=== PATIENT | male | born 1985 | race Caucasian/White ===

== ENCOUNTER 2016-07-29 05:34 | Day surgery (SDC) | payer OTHER ==
[~2016-07-29] VITALS: Ht 175.3 cm; Wt 103.9 kg
[~2016-07-29 05:34] MED LIST: LISINOPRIL
[2016-07-29] MEDS ORDERED: CARDIZEM CD 12120 MG PO (05:52)
[2016-07-29] MEDS ORDERED: BENICAR HCT 251 TAB PO (05:52)
[2016-07-29] MEDS ORDERED: PRIL40 PO (05:52)
[2016-07-29] MEDS ORDERED: CELEXA 20MG20 MG/TAB PO (05:53)
[2016-07-29] MEDS ORDERED: ZYRTEC 10MG10 MG PO (05:53)
[2016-07-29] MEDS ORDERED: STOOL SOFTENER100 M2 PO (05:54)
[2016-07-29 06:24] VITALS: BP 144/85; PULSE 75; TEMP 98.4
[2016-07-29 08:30] VITALS: BP 143/77; PULSE 74; TEMP 97.2
[2016-07-29 08:35] VITALS: TEMP 99
[2016-07-29 08:45] VITALS: BP 132/76; PULSE 67
== END 2016-07-29 09:15 | disposition home or self-care (01) ==
LOC: SDCO 05:34
DX: K60.3 Anal fistula (principal); K64.8 Other hemorrhoids; B00.9 Herpesviral infection, unspecified; I10 Essential (primary) hypertension; F41.9 Anxiety disorder, unspecified; K21.9 Gastro-esophageal reflux disease without esophagitis; F17.200 Nicotine dependence, unspecified, uncomplicated
CPT/HCPCS: J1100; J1885; J2270; J2405; J2704; J3010; J7120

== ENCOUNTER → 2018-07-05 | Outpatient (REF) ==
[~2018-07-05] MED LIST changes: +BENICAR HCT 251 TAB PO; +CARDIZEM CD 12120 MG PO; +CELEXA 20MG20 MG/TAB PO; +PRIL40 PO; +STOOL SOFTENER100 M2 PO; +ZYRTEC 10MG10 MG PO
== END ==
LOC: ZLAB.WCH 19:16
DX: Z01.89 Encounter for other specified special examinations (principal)

== ENCOUNTER → 2018-07-13 | Outpatient (REF) | LOC: ZLAB.WCH 08:27 | DX: Z01.89 Encounter for other specified special examinations (principal) ==

== ENCOUNTER → 2018-07-20 | Outpatient (REF) | LOC: ZLAB.WCH 08:56 | DX: Z01.89 Encounter for other specified special examinations (principal) ==